=== PATIENT | male | born 1970 | race Caucasian/White ===

== ENCOUNTER 2016-11-12 11:07 | Inpatient (IN) | payer OTHER ==
[~2016-11-12] VITALS: Ht 182.9 cm; Wt 68.2 kg
[2016-11-12] MEDS ORDERED: DEXT20TA24 PO (13:29)
[2016-11-12] MEDS ORDERED: OXYC15TA PO (13:31)
--- NOTE | 2016-11-12 14:15 | EKG ---
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
[2016-11-12 15:02] LABS: BASO # 0.1 x10^3/uL (0.0-0.2); BASO % 1 % (0-3); EOS % 1 % (0-3); HEMATOCRIT 45.1 % (39.0-53.0); HEMOGLOBIN 15.2 g/dL (13.0-17.5); LYMPH # 1.5 x10^3/uL (1.0-4.8); LYMPH % 18 % (24-48); MEAN CORPUSCULAR HEMOGLOBIN 31 pg (25-35); MEAN CORPUSCULAR HGB CONC 34 g/dL (31-37); MEAN CORPUSCULAR VOLUME 92 fL (79-100); MONO % 6 % (0-9); NEUT % 74 % (31-73); PLATELET COUNT 191 x10^3/uL (140-400); RED BLOOD COUNT 4.89 x10^6/uL (4.30-5.70); RED CELL DISTRIBUTION WIDTH 13.1 % (11.5-14.5); WHITE BLOOD COUNT 8.6 x10^3/uL (4.0-11.0)
[2016-11-12 15:15] LABS: ALBUMIN 3.7 g/dL (3.4-5.0); CALCIUM 8.8 mg/dL (8.5-10.1); CREATININE 0.9 mg/dL (0.7-1.3); GFR 90.4; POTASSIUM 4.4 mmol/L (3.5-5.1); TOTAL BILIRUBIN 0.3 mg/dL (0.2-1.0); TOTAL PROTEIN 7.3 g/dL (6.4-8.2)
[2016-11-12 15:25] VITALS: BP 123/80
[2016-11-12 15:28] VITALS: BP 135/84
[2016-11-12 15:32] VITALS: BP 113/80
--- NOTE | 2016-11-12 15:49 | CARD ---
APPROVED REPORT EXAM: Two-dimensional and M-mode echocardiogram with Doppler and color Doppler. Other Information Quality : GoodHR: 54bpm Rhythm : Bradycardia INDICATION Syncope 2D DIMENSIONS RVDd3.5 (2.9-3.5cm)Left Atrium(2D)2.5 (1.6-4.0cm) IVSd0.8 (0.7-1.1cm)Aortic Root(2D)2.1 (2.0-3.7cm) LVDd4.6 (3.9-5.9cm)LVOT Diameter2.1 (1.8-2.4cm) PWd0.7 (0.7-1.1cm)LVDs3.4 (2.5-4.0cm) FS (%) 27.8 %SV53.6 ml LVEF(%)53.9 (>50%) Aortic Valve AoV Peak Wes.97.3cm/sAoV VTI22.1cm AO Peak GR.3.8mmHgLVOT Peak Wes.94.8cm/s AO Mean GR.2mmHgAVA (VMAX)3.50cm2 Mitral Valve MV E Zdnfxrbu03.9cm/sMV DECEL [id number] MV A Xczxrvhc66.5cm/sE/A Ratio1.7 MV A [id number] Pulmonary Valve PV Peak Tiflvnkh233.8cm/s Pulmonary Vein S1 Vhmtsvak69.2cm/sD2 Svbxtulf80.4cm/s PVa yetsonft89fktk LEFT VENTRICLE The left ventricle is normal size. There is normal left ventricular wall thickness. The left ventricu lar systolic function is normal and the ejection fraction is within normal range. The Ejection Fracti on is 50-55%. There is normal LV segmental wall motion. The left ventricular diastolic function and f illing is normal for age. RIGHT VENTRICLE The right ventricle is normal size. There is normal right ventricular wall thickness. The right ventr icular systolic function is normal. ATRIA The left atrium size is normal. The right atrium size is normal. The interatrial septum is intact wit h no evidence for an atrial septal defect or patent foramen ovale as noted on 2-D or Doppler imaging. AORTIC VALVE The aortic valve is trileaflet. Doppler and Color Flow revealed no significant aortic regurgitation. There is no significant aortic valvular stenosis. MITRAL VALVE The mitral valve is normal in structure and function. There is no evidence of mitral valve prolapse. There is no mitral valve stenosis. Doppler and Color Flow revealed no mitral valve regurgitation note d. TRICUSPID VALVE Doppler and Color Flow revealed no tricuspid valve regurgitation noted. PULMONIC VALVE The pulmonary valve is not well visualized but appears to opens well. Doppler and Color Flow revealed no pulmonic valvular regurgitation. There is no pulmonic valvular stenosis by spectral Doppler. GREAT VESSELS The aortic root is normal in size. The ascending aorta is normal in size. The pulmonary artery is nor mal. The IVC is normal in size and collapses >50% with inspiration. PERICARDIAL EFFUSION There is no evidence of significant pericardial effusion. Critical Notification Critical Value: No <Conclusion> The left ventricle is normal size. The left ventricular systolic function is normal and the ejection fraction is within normal range. The Ejection Fraction is 50-55%. The interatrial septum is intact with no evidence for an atrial septal defect or patent foramen ovale as noted on 2-D or Doppler imaging. There is no significant aortic valvular stenosis. Doppler and Color Flow revealed no significant aortic regurgitation. Doppler and Color Flow revealed no mitral valve regurgitation noted. Doppler and Color Flow revealed no tricuspid valve regurgitation noted. There is no evidence of significant pericardial effusion.
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
[2016-11-12] MEDS: oxyCODONE IR 5 MG TABLET PO PRN ×2 (17:18→21:51)
[2016-11-12] MEDS: NICOTINE 21MG PATCH. TD SCH (17:18)
[2016-11-12 17:30] VITALS: BP 109/71
--- NOTE | 2016-11-12 17:49 | PDOC2 ---
CARDIOLOGY CONSULT NOTE CHEIF COMPLAINT: Passing out Problems: HPI: Pleasant 46-year-old gentleman who is on minimal medical therapy comes into the hospital as a direct admission at the request of his primary care physician Dr. Thompson who is concerned about his vasovagal and near syncopal episodes. 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 He admits to a poor diet and lack of any significant hydration. Subsequently he attained near syncopal episode yesterday where he bent down and upon standing up he had some lightheadedness and dizziness but did not have any trauma or true syncope. He denies any associated chest pain, orthopnea, PND or lower extremity edema. He's not had any palpitations. No prior abnormalities of the cardiac system are noted. PMHX: Chronic pain SOCHX: One half pack per day smoker. Denies any alcohol use. No illicit drug use. 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 FAMHX: Negative for any sudden cardiac . CURRENT MEDS: Current Medications Medications (Trade) Dose Ordered Sig/Rodriguez Start Time Stop Time Status Last Admin Dose Admin Nicotine (Nicoderm Cq 21mg) 1 patch DAILY 11/12/16 17:30 11/12/16 17:18 1 PATCH Non-Formulary Medication 1 tab BID 11/12/16 21:00 UNV Oxycodone HCl (Roxicodone) 15 mg PRN Q6HRS PRN 11/12/16 17:15 11/12/16 17:18 15 MG ALLERGIES: Allergies Coded Allergies Type Severity Reaction Last Updated Verified No Known Drug Allergies 11/12/16 No ROS: Negative for 10 out of 14 systems reviewed unless otherwise mentioned above in history of present illness. PHYSICAL EXAM: Vital Signs: Vital Signs Date Time Temp Pulse Resp B/P (MAP) Pulse Ox O2 Delivery O2 Flow Rate FiO2 11/12/16 17:30 97.8 18 18 109/71 (84) Room Air 97.8 11/12/16 15:32 99 Physical Exam: GEN.: No apparent distress. Alert and oriented. HEENT: Head is normocephalic, atraumatic NECK: Supple. LUNGS: Clear to auscultation. HEART: RRR, S1, S2 present. Peripheral pulses intact ABDOMEN: Soft, nontender. Positive bowel sounds. EXTREMITIES: Without any cyanosis. NEUROLOGIC: Normal speech, normal tone PSYCHIATRIC: Normal affect, normal mood. SKIN: No ulcerations DIAGNOSTIC TESTING: EKGs unremarkable. Laboratory studies are unremarkable. Echocardiogram is within normal limits with normal ejection fraction without any valvular abnormalities. Lab Laboratory Tests Test 11/12/16 13:56 11/12/16 14:35 Sodium Level 139 mmol/L (136-145) Potassium Level 4.4 mmol/L (3.5-5.1) Chloride Level 102 mmol/L (98-107) Carbon Dioxide Level 29 mmol/L (21-32) Anion Gap 8 (6-14) Blood Urea Nitrogen 6 mg/dL (8-26) L Creatinine 0.9 mg/dL (0.7-1.3) Estimated GFR (Cockcroft-Gault) 90.4 BUN/Creatinine Ratio 7 (6-20) Glucose Level 74 mg/dL (70-99) Calcium Level 8.8 mg/dL (8.5-10.1) Total Bilirubin 0.3 mg/dL (0.2-1.0) Aspartate Amino Transf (AST/SGOT) 20 U/L (15-37) Alkaline Phosphatase 125 U/L (46-116) H Total Protein 7.3 g/dL (6.4-8.2) Albumin 3.7 g/dL (3.4-5.0) Albumin/Globulin Ratio 1.0 (1.0-1.7) White Blood Count 8.6 x10^3/uL (4.0-11.0) Red Blood Count 4.89 x10^6/uL (4.30-5.70) Hemoglobin 15.2 g/dL (13.0-17.5) Hematocrit 45.1 % (39.0-53.0) Mean Corpuscular Volume 92 fL (79-100) Mean Corpuscular Hemoglobin 31 pg (25-35) Mean Corpuscular Hemoglobin Concent 34 g/dL (31-37) Red Cell Distribution Width 13.1 % (11.5-14.5) Platelet Count 191 x10^3/uL (140-400) Neutrophils (%) (Auto) 74 % (31-73) H Lymphocytes (%) (Auto) 18 % (24-48) L Monocytes (%) (Auto) 6 % (0-9) Eosinophils (%) (Auto) 1 % (0-3) Basophils (%) (Auto) 1 % (0-3) Neutrophils # (Auto) 6.4 x10^3uL (1.8-7.7) Lymphocytes # (Auto) 1.5 x10^3/uL (1.0-4.8) Monocytes # (Auto) 0.5 x10^3/uL (0.0-1.1) Eosinophils # (Auto) 0.1 x10^3/uL (0.0-0.7) Basophils # (Auto) 0.1 x10^3/uL (0.0-0.2) Thyroid Stimulating Hormone (TSH) 1.295 uIU/mL (0.358-3.74) ASSESSMENT: 1. Near-syncope likely the setting of vasovagal episode related to dehydration and/or excessive medications with narcotics. PLAN: 1. Chance currently has a normal cardiac exam, normal EKG and a normal echocardiogram without any evidence for cardiac source of syncope. Agree with monitoring on telemetry overnight and if stable can likely be safely discharged. 2. His orthostatics thus far are not significantly abnormal. Discussed adequate hydration and oral diet. ZARI AVILA MD Nov 12, 2016 17:49
[2016-11-12 19:13] VITALS: BP 105/67
[2016-11-12] MEDS ORDERED: AMPHETAMINE PO SCH (21:00)
[2016-11-12] MEDS ORDERED: [UNRECOGNIZED DRUG - OTHER] PO SCH (21:00)
[2016-11-12] MEDS ORDERED: DEXTROAMPHETAMINE PO SCH (21:00)
--- NOTE | 2016-11-12 21:25 | HP ---
ADMIT DATE: 11/12/2016 CHIEF COMPLAINT AND HISTORY OF PRESENT ILLNESS: This 46-year-old white male admitted through the office on the day of admission with syncopal episodes x2 over the last or so, a week to week and a half. The first time it happened while he was getting up from a chair, got dizzy, everything went white, and he woke up on the floor. Last time was just a couple of days ago where he was bending or picking up some stuff off the floor. When he started to come back up, the same situation happened, landing on the floor. He was orthostatic in the office with a blood pressure of 98/60 sitting, going to 84/50 standing. There is no good etiology for this as he has been eating and drinking well. He has been laid off from work for the last couple of weeks and has been inside an air conditioning. Because of the 2 syncopal episodes ____ admitted at this point in time for telemetry monitoring as well as cardiology and neurology evaluation. PAST MEDICAL HISTORY: Remarkable for chronic back pain and shoulder pain. He has a history of ADD, has a history of some depression, low testosterone levels, anxiety, and had a prior right footdrop. MEDICATIONS: Brought with the patient, listed on the computer, and have been addressed. ALLERGIES: No known drug allergies. SOCIAL HISTORY: He does smoke 1 pack per day. Does not use alcohol, does not use drugs. Single, lives at home alone. FAMILY HISTORY: Noncontributory. REVIEW OF SYSTEMS: Denies any bleeding, nausea, vomiting, diarrhea, etc. PHYSICAL EXAMINATION: GENERAL: He is a well-developed, well-nourished white male in no acute distress, sweating. VITAL SIGNS: He feels the orthostasis as above, but otherwise stable. HEAD, EYES, EARS, NOSE AND THROAT: Unremarkable. NECK: Supple without bruit or thyromegaly. CHEST: Clear to auscultation and percussion. HEART: Regular rate and rhythm without S3, S4 or murmur. ABDOMEN: Soft, nontender, without hepatosplenomegaly or masses. EXTREMITIES: Without cyanosis, clubbing, or edema. NEUROLOGIC: He is intact. IMPRESSION: Syncope x2 as listed above. PLAN: The patient has been admitted. Once again echo, EKG and laboratory will be checked. Neurology and cardiology will be asked about their opinions, and the patient will be monitored, managed and treated appropriately. GALILEA CORNELL MD DR: Yanet JOB#: [id number] / [id number]
[2016-11-12 22:05] VITALS: BP 110/73
--- NOTE | 2016-11-13 02:28 | ACF ---
Admission Forms Criteria SYNCOPE Clinical Indications for Admission to Inpatient Care ( Place 'X' for any and all applicable criteria): Admission is indicated for syncope and ANY ONE of the following (1)(2)(3)(4)(5) (6)(7) : [X]I. Inpatient admission required rather than observation care (Also use Syncope: Observation Care Criteria as appropriate) because of ANY ONE of the following: [ ]a) Hemodynamic instability that is severe or persistent [ ]b) Cardiac arrhythmias of immediate concern identified or strongly suspected (eg, needs electrophysiologic study) [ ]c) Acute coronary syndrome identified (Also use Myocardial Infarction or Angina Criteria form ) [ ]d) Structural cardiac disorder (eg, aortic stenosis) suspected as cause that requires immediate correction [ ]e) Respiratory symptoms (eg, dyspnea, tachypnea) that are severe or persistent [ ]f) Neurologic signs or symptoms that are severe or persistent ( eg, stroke, seizures, altered mental status) [ ]g) Severe electrolyte abnormalities requiring inpatient care [ ]h) Supplemental oxygen or respiratory treatment for over 24 hrs that are performable only in acute inpatient setting [ ]i) IV fluid to replace significant ongoing (eg, for over 24 hrs ) losses (>3 L/m2 per day) [ ]j) Continuous intravenous infusion of anticoagulation, platelet inhibitor, vasoactive, or antiarrhythmic medication(15)(16) [ ]k) Pulmonary artery catheter monitoring [ ]l) Temporary pacemaker placement(17) [ ]m) Emergent cardioversion(18) [X]n) Other conditions, treatment or monitoring requiring inpatient admission [ ]II. Suspicion of imminently dangerous cause (eg, rare causes like pericardial tamponade, pulmonary embolism) [ ]III. Syncope causing severe injury requiring hospitalization Extended stay beyond goal length of stay may be needed for(28) [ ]a) Dangerous arrhythmia(15)(23)(27)(29) [ ]b) Myocardial ischemia [ ]c) Seizure disorder [ ]d) Syncope-related injuries The original [employer] content created by [employer] has been revised. The portions of the content which have been revised are identified through the use of italic text or in bold, and [employer] has neither reviewed nor approved the modified material. All other unmodified content is copyright [employer]. Please see references footnoted in the original [facility] edition 2016 Admission Criteria Met?: Yes EDIN MURRIETA Nov 13, 2016 02:28
[2016-11-13 02:56] VITALS: BP 121/78
[2016-11-13] MEDS: oxyCODONE IR 5 MG TABLET PO PRN (06:23)
[2016-11-13 07:00] VITALS: BP 109/68
[2016-11-13] MEDS: NICOTINE 21MG PATCH. TD SCH (08:18)
--- NOTE | 2016-11-13 08:45 | PDOC ---
GENERAL General: vss and afebrile. awake and alert. no significant arythmias since admit reported. echo is normal and lab unremarkable. patient history to me, and confirmed this am, is that of true syncope X 2 and not near syncope. orthostatic blood pressures not as dramatic as was in office yesterday. will follow lead of cardiology and neurology with dc today if they feel no further beltran needed. beltran to date should rule out life threatening condition. Problems: VITAL SIGNS Vital Signs: Vital Signs Date Time Temp Pulse Resp B/P (MAP) Pulse Ox O2 Delivery O2 Flow Rate FiO2 11/13/16 07:25 96 Room Air 11/13/16 07:00 98.1 76 19 109/68 (82) 98.1 I & O I & O Intake and Output 11/13/16 06:59 Intake Total 1690 ml Balance 1690 ml Intake Oral 1690 ml # Voids 2 ALLERGIES Allergies: Allergies Coded Allergies Type Severity Reaction Last Updated Verified No Known Drug Allergies 11/12/16 No MEDS Medications: Current Medications Medications (Trade) Dose Ordered Sig/Rodriguez Start Time Stop Time Status Last Admin Dose Admin Nicotine (Nicoderm Cq 21mg) 1 patch DAILY 11/12/16 17:30 11/13/16 08:18 1 PATCH Non-Formulary Medication 1 tab BID 11/12/16 21:00 UNV Oxycodone HCl (Roxicodone) 15 mg PRN Q6HRS PRN 11/12/16 17:15 11/13/16 06:23 15 MG LAB Lab: Laboratory Tests Test 11/12/16 13:56 11/12/16 14:35 Sodium Level 139 mmol/L (136-145) Potassium Level 4.4 mmol/L (3.5-5.1) Chloride Level 102 mmol/L (98-107) Carbon Dioxide Level 29 mmol/L (21-32) Anion Gap 8 (6-14) Blood Urea Nitrogen 6 mg/dL (8-26) Creatinine 0.9 mg/dL (0.7-1.3) Estimated GFR (Cockcroft-Gault) 90.4 BUN/Creatinine Ratio 7 (6-20) Glucose Level 74 mg/dL (70-99) Calcium Level 8.8 mg/dL (8.5-10.1) Total Bilirubin 0.3 mg/dL (0.2-1.0) Aspartate Amino Transf (AST/SGOT) 20 U/L (15-37) Alanine Aminotransferase (ALT/SGPT) 20 U/L (16-63) Alkaline Phosphatase 125 U/L (46-116) Total Protein 7.3 g/dL (6.4-8.2) Albumin 3.7 g/dL (3.4-5.0) Albumin/Globulin Ratio 1.0 (1.0-1.7) White Blood Count 8.6 x10^3/uL (4.0-11.0) Red Blood Count 4.89 x10^6/uL (4.30-5.70) Hemoglobin 15.2 g/dL (13.0-17.5) Hematocrit 45.1 % (39.0-53.0) Mean Corpuscular Volume 92 fL (79-100) Mean Corpuscular Hemoglobin 31 pg (25-35) Mean Corpuscular Hemoglobin Concent 34 g/dL (31-37) Red Cell Distribution Width 13.1 % (11.5-14.5) Platelet Count 191 x10^3/uL (140-400) Neutrophils (%) (Auto) 74 % (31-73) Lymphocytes (%) (Auto) 18 % (24-48) Monocytes (%) (Auto) 6 % (0-9) Eosinophils (%) (Auto) 1 % (0-3) Basophils (%) (Auto) 1 % (0-3) Neutrophils # (Auto) 6.4 x10^3uL (1.8-7.7) Lymphocytes # (Auto) 1.5 x10^3/uL (1.0-4.8) Monocytes # (Auto) 0.5 x10^3/uL (0.0-1.1) Eosinophils # (Auto) 0.1 x10^3/uL (0.0-0.7) Basophils # (Auto) 0.1 x10^3/uL (0.0-0.2) Thyroid Stimulating Hormone (TSH) 1.295 uIU/mL (0.358-3.74) GALILEA CORNELL MD Nov 13, 2016 08:45
[2016-11-13 11:00] VITALS: BP 113/72
--- NOTE | 2016-11-13 11:11 | PDOC ---
PROGRESS NOTES Assessment Vasovagal presyncope although Dr. Thompson got a history of true syncope No evidence of autonomic dysfunction Note normal cardiac workup Plan Okay for me for discharge Follow-up with neurology as needed I encourage patient to pursue hydration and also quit avoiding meals as he states he sometimes doesn't eat until dinner time. Subjective No complaints Objective Vital Signs Date Time Temp Pulse Resp B/P (MAP) Pulse Ox O2 Delivery O2 Flow Rate FiO2 11/13/16 08:00 Room Air 11/13/16 07:25 96 11/13/16 07:00 98.1 76 19 109/68 (82) 98.1 Intake and Output 11/13/16 07:00 Intake Total 1690 ml Balance 1690 ml Intake Oral 1690 ml # Voids 2 PHYSICAL EXAM Alert. Oriented to time, place and person. PERRL. EOMI. CN: no focal findings. Muscle tone: normal. Muscle strength: 5/5 DTR: 2+ Plantar reflex: flexor Gait: normal. Sensory exam: no abnormal findings. No cerebellar signs elicited. Review of Relevant I have reviewed the following items ewelina (where applicable) has been applied. Labs Laboratory Tests Test 11/12/16 13:56 11/12/16 14:35 Sodium Level 139 mmol/L (136-145) Potassium Level 4.4 mmol/L (3.5-5.1) Chloride Level 102 mmol/L (98-107) Carbon Dioxide Level 29 mmol/L (21-32) Anion Gap 8 (6-14) Blood Urea Nitrogen 6 mg/dL (8-26) Creatinine 0.9 mg/dL (0.7-1.3) Estimated GFR (Cockcroft-Gault) 90.4 BUN/Creatinine Ratio 7 (6-20) Glucose Level 74 mg/dL (70-99) Calcium Level 8.8 mg/dL (8.5-10.1) Total Bilirubin 0.3 mg/dL (0.2-1.0) Aspartate Amino Transf (AST/SGOT) 20 U/L (15-37) Alanine Aminotransferase (ALT/SGPT) 20 U/L (16-63) Alkaline Phosphatase 125 U/L (46-116) Total Protein 7.3 g/dL (6.4-8.2) Albumin 3.7 g/dL (3.4-5.0) Albumin/Globulin Ratio 1.0 (1.0-1.7) White Blood Count 8.6 x10^3/uL (4.0-11.0) Red Blood Count 4.89 x10^6/uL (4.30-5.70) Hemoglobin 15.2 g/dL (13.0-17.5) Hematocrit 45.1 % (39.0-53.0) Mean Corpuscular Volume 92 fL (79-100) Mean Corpuscular Hemoglobin 31 pg (25-35) Mean Corpuscular Hemoglobin Concent 34 g/dL (31-37) Red Cell Distribution Width 13.1 % (11.5-14.5) Platelet Count 191 x10^3/uL (140-400) Neutrophils (%) (Auto) 74 % (31-73) Lymphocytes (%) (Auto) 18 % (24-48) Monocytes (%) (Auto) 6 % (0-9) Eosinophils (%) (Auto) 1 % (0-3) Basophils (%) (Auto) 1 % (0-3) Neutrophils # (Auto) 6.4 x10^3uL (1.8-7.7) Lymphocytes # (Auto) 1.5 x10^3/uL (1.0-4.8) Monocytes # (Auto) 0.5 x10^3/uL (0.0-1.1) Eosinophils # (Auto) 0.1 x10^3/uL (0.0-0.7) Basophils # (Auto) 0.1 x10^3/uL (0.0-0.2) Thyroid Stimulating Hormone (TSH) 1.295 uIU/mL (0.358-3.74) Laboratory Tests Test 11/12/16 13:56 11/12/16 14:35 Sodium Level 139 mmol/L (136-145) Potassium Level 4.4 mmol/L (3.5-5.1) Chloride Level 102 mmol/L (98-107) Carbon Dioxide Level 29 mmol/L (21-32) Anion Gap 8 (6-14) Blood Urea Nitrogen 6 mg/dL (8-26) Creatinine 0.9 mg/dL (0.7-1.3) Estimated GFR (Cockcroft-Gault) 90.4 BUN/Creatinine Ratio 7 (6-20) Glucose Level 74 mg/dL (70-99) Calcium Level 8.8 mg/dL (8.5-10.1) Total Bilirubin 0.3 mg/dL (0.2-1.0) Aspartate Amino Transf (AST/SGOT) 20 U/L (15-37) Alanine Aminotransferase (ALT/SGPT) 20 U/L (16-63) Alkaline Phosphatase 125 U/L (46-116) Total Protein 7.3 g/dL (6.4-8.2) Albumin 3.7 g/dL (3.4-5.0) Albumin/Globulin Ratio 1.0 (1.0-1.7) White Blood Count 8.6 x10^3/uL (4.0-11.0) Red Blood Count 4.89 x10^6/uL (4.30-5.70) Hemoglobin 15.2 g/dL (13.0-17.5) Hematocrit 45.1 % (39.0-53.0) Mean Corpuscular Volume 92 fL (79-100) Mean Corpuscular Hemoglobin 31 pg (25-35) Mean Corpuscular Hemoglobin Concent 34 g/dL (31-37) Red Cell Distribution Width 13.1 % (11.5-14.5) Platelet Count 191 x10^3/uL (140-400) Neutrophils (%) (Auto) 74 % (31-73) Lymphocytes (%) (Auto) 18 % (24-48) Monocytes (%) (Auto) 6 % (0-9) Eosinophils (%) (Auto) 1 % (0-3) Basophils (%) (Auto) 1 % (0-3) Neutrophils # (Auto) 6.4 x10^3uL (1.8-7.7) Lymphocytes # (Auto) 1.5 x10^3/uL (1.0-4.8) Monocytes # (Auto) 0.5 x10^3/uL (0.0-1.1) Eosinophils # (Auto) 0.1 x10^3/uL (0.0-0.7) Basophils # (Auto) 0.1 x10^3/uL (0.0-0.2) Thyroid Stimulating Hormone (TSH) 1.295 uIU/mL (0.358-3.74) Medications Current Medications Non-Formulary Medication 1 tab BID PO ; Start 11/12/16 at 21:00; Status UNV Oxycodone HCl (Roxicodone) 15 mg PRN Q6HRS PRN PO PAIN Last administered on 11/13 06:23; Start 11/12/16 at 17:15 Nicotine (Nicoderm Cq 21mg) 1 patch DAILY TD Last administered on 11/13/16 08: 18; Start 11/12/16 at 17:30 Active Scripts Active Reported Oxycodone Hcl 15 Mg Tablet 15 Mg PO Q6HRS PRN Amphetamine Salts 20 Mg Tablet (Dextroamphetamine/Amphetamine) 20 Mg Tablet 1 Tab PO BID Vitals/I & O Vital Sign - Last 24 Hours 11/12/16 11/12/16 11/12/16 11/12/16 15:25 15:28 15:32 17:18 Temp 97.5 97.5 97.5 97.5 97.5 97.5 Pulse 70 72 76 Resp 16 18 18 18 B/P (MAP) 123/80 (94) 135/84 (101) 113/80 (91) Pulse Ox 97 99 99 O2 Delivery Room Air Room Air Room Air Room Air 11/12/16 11/12/16 11/12/16 11/12/16 17:30 19:13 19:20 22:05 Temp 97.8 97.8 98.0 97.8 97.8 98.0 Pulse 18 67 63 Resp 18 16 16 B/P (MAP) 109/71 (84) 105/67 (80) 110/73 (85) Pulse Ox 95 94 O2 Delivery Room Air Room Air Room Air Room Air 11/13/16 11/13/16 11/13/16 11/13/16 02:56 07:00 07:25 08:00 Temp 97.8 98.1 97.8 98.1 Pulse 66 76 Resp 16 19 B/P (MAP) 121/78 (92) 109/68 (82) Pulse Ox 96 92 96 O2 Delivery Room Air Room Air Room Air Room Air Intake and Output 11/12/16 11/12/16 11/13/16 15:00 23:00 07:00 Intake Total 690 ml 1000 ml Balance 690 ml 1000 ml DENIZ MORE MD Nov 13, 2016 11:11
== END 2016-11-13 11:35 | disposition home or self-care (01) | DRG 312 ==
LOC: 2 SOUTH 12:05
PROVIDERS: ADMIT Family Medicine; ATTEND Family Medicine
DX: R55 Syncope and collapse (principal); E86.0 Dehydration; F17.210 Nicotine dependence, cigarettes, uncomplicated; G89.29 Other chronic pain; F32.9 Major depressive disorder, single episode, unspecified; F41.9 Anxiety disorder, unspecified; M19.90 Unspecified osteoarthritis, unspecified site; Z80.9 Family history of malignant neoplasm, unspecified
CPT/HCPCS: 36415; 80053; 84443; 85027; 93005; 93306